=== PATIENT | female | born 1965 | race Caucasian/White ===

== ENCOUNTER 2016-11-21 09:39 | Emergency (ER) | payer MEDICARE ==
[2016-11-21 09:55] VITALS: TEMP 98.2; BMI 33.7
[2016-11-21] MEDS ORDERED: SODIUM CHLORIDE 0.9% 3 ML FLUSH FLUSH PRN (10:14)
--- NOTE | 2016-11-21 10:33 | EDPRACDOC ---
- General Information Chief Complaint: Thigh Pain Stated Complaint: LT HIP PAIN Time Seen by Provider: 11/21/16 09:54 Information Source: Patient Mode Of Arrival: Car Home Medications: Home Medications Buspirone HCl [Buspar] 10 mg PO TID 09/20/12 Gabapentin 800 mg PO QID 09/20/12 Cefdinir 300 mg PO .BID X 10D 11/21/16 Cyclobenzaprine HCl [Flexeril] 10 mg PO Q8H #10 tab 11/21/16 Estradiol [Estrace] 1 mg PO DAILY 11/21/16 Fluticasone Propionate [Flonase] 2 spray JEWELS DAILY 11/21/16 Hydrochlorothiazide [Hydrodiuril] 12.5 mg PO QAM 11/21/16 Hydrocodone Bit/Acetaminophen [Hydrocodon-Acetaminophen 5-325] 1 tab PO Q6H PRN #10 tab 11/21/16 Meloxicam [Mobic] 7.5 mg PO BID 11/21/16 Trazodone HCl 300 mg PO HS 11/21/16 Allergies/Adverse Reactions: Allergies Allergy/AdvReac Type Severity Reaction Status Date / Time No Known Allergies Allergy Verified 09/20/12 09:16 - History of Present Illness Onset: this morning HPI: Patient reports left groin pain started on Tuesday - denies known injury, no lifting/bending/twisting. Reports called PCP and could not be seen, told to go to - was seen at had xray and told had arthritis. Patient states she does not think it is only arthritis. States she has increased pain with weight bearing, no urinary symptoms, no fever, chills, nausea/vomiting. Denies numbness /tinging, normal distal exam. No swelling/redness or warmth noted. No back pain. Severity: Reports: Mild Able to Bear Weight: Limited Pain In: Reports: Thigh ED Past Medical History - History Reviewed Yes Nurses notes reviewed and agree except as marked - Patient Medical History Cardiac History: Reports: Hypercholesterolemia Surgical History: Reports: No Significant History - Social Medical History Smoking Status: Heavy tobacco smoker (5 or more cigarettes/day or daily pipe/ cigar) ETOH: None Substance Abuse: None Lives In: Home EDM Review of Systems - Review of Systems ROS Negative Except as Marked: Yes All systems reviewed and were negative except as marked Constitutional: No Symptoms Reported Eyes: No Symptoms Reported Ears: No Symptoms Reported Throat: No Symptoms Reported Nose: No Symptoms Reported Gastrointestinal: No Symptoms Reported Genitourinary: No Symptoms Reported Neurological: No Symptoms Reported Musculoskeletal: Other (Left groin pain) Integumentary: No Symptoms Reported - Physical Exam Constitutional: Alert (Awake), No apparent distress Oriented to: Time, Person, Place Last recorded Vital Signs: Last Vital Signs Temp 98.2 F 11/21/16 09:50 Pulse 90 11/21/16 09:50 Resp 18 11/21/16 09:50 BP 160/70 11/21/16 09:50 Pulse Ox 93 11/21/16 09:50 Oxygen Pulse Oxygen Saturation 93 O2 Device Room Air Oxygen Flow Rate Fraction of Inspired Oxygen ( FIO2) - HEENT Head: Normal ( normocephalic) Eye Exam: Normal (PERRL, EOMI, Sclera white) Neck: Normal (FROM, trachea at midline) - Respiratory/Cardiovascular Respiratory: Normal - CTA (BBS clear to auscultation without adventitious sounds ) Cardiovascular: Normal (RRR without murmur, gallop or rub) - GI Auscultation: Normal (NABS) Tenderness: Non tender - Musculoskeletal Back: Normal (Non-Tender) Extremities: Other (Left groin pain - minimal on palpation, worse with weight bearing, no redness/swelling/warmth) - Integumentary Skin: Normal, Warm, Dry Lymphatics: Normal (no adenopathy) - Neurologic Memory Impaired: Normal Motor Function: Normal (Normal tone, Pulses 2+ No cyanosis or edema, FROM) Mood Description: Normal - Re-evaluation Re-evaluation 1 Re-evaluation Time: 12:[address] scan and lab work with patient - negative for acute findings, need to followup with PCP and Ortho if pain persists. Rest, elevate, warm compresses , return as needed. - Results 11/21/16 10:23 11/21/16 10:23 Decision Time to Discharge: 12:34 - Departure Disposition: Home Condition: Stable Final Diagnosis: Groin pain Qualifiers: Laterality: left Qualified Code(s): R10.32 - Left lower quadrant pain Instructions: Non-pharmacological Pain Management Therapies for Adults (GEN), Abdominal Pain (ED) Education/Counseling Given To: Patient Education/Counseling Given Regarding: Diagnosis, Treatment, Prognosis, Follow Up Referrals: Paulina Trevino PA [Primary Care Provider] - 1-2 days Gregorio Barreto MD [Staff Physician] - One Week Prescriptions: Cyclobenzaprine HCl [Flexeril] 10 mg PO Q8H #10 tab Hydrocodone Bit/Acetaminophen [Hydrocodon-Acetaminophen 5-325] 1 tab PO Q6H PRN #10 tab PRN Reason: Pain Additional Instructions: Please followup with PCP in 1-2days. Return to ED if symptoms worsen/change or concerns arise. Rest, warm compresses at home. Consider followup with Ortho if pain persists.
[2016-11-21 10:46] LABS: AUTOMATED EOSINOPHIL 2.5 % (0-5); AUTOMATED LYMPH 21.4 % (17-44); AUTOMATED MONOCYTE 6.9 % (3-10); AUTOMATED NEUTROPHIL 68.2 % (45-76); MPV 7.9 fL (7.4-10.4)
[2016-11-21 10:54] LABS: BLOOD UREA NITROGEN 7 MG/DL (7-17); CALCIUM 9.6 MG/DL (8.4-10.2); CALCULATED OSMOLALITY 269 MOs/Kg (270-290); CHLORIDE 105 mEq/L (98-107); GLUCOSE 129 MG/DL (70-99); SODIUM LEVEL 140 mEq/L (137-146); TOTAL PROTEIN 8.4 G/DL (6.3-8.2)
[2016-11-21 10:54] LABS: RBC/URINE 0-2 (0-5); WBC/URINE 0-2 (0-5)
[2016-11-21] MEDS ORDERED: Pharmacy Review for Metformin - IV Contrast Given SCH (11:00)
[2016-11-21 11:46] LABS: LEUKOCYTES/URINE NEG (NEGATIVE); NITRITE/URINE NEG (NEGATIVE); URINE OCCULT BLOOD NEG (NEG/TRACE)
--- NOTE | 2016-11-21 12:20 | DIRPT ---
CLINICAL DATA: Left lower quadrant and left groin pain beginning this morning. EXAM: CT ABDOMEN AND PELVIS WITH CONTRAST TECHNIQUE: Multidetector CT imaging of the abdomen and pelvis was performed using the standard protocol following bolus administration of intravenous contrast. CONTRAST: 100 mL Isovue 370 COMPARISON: 03/27/2008 FINDINGS: Lower chest: No acute findings. Hepatobiliary: Hepatomegaly and mild diffuse hepatic steatosis demonstrated. No liver masses identified. Gallbladder is unremarkable. Pancreas: No mass, inflammatory changes, or other significant abnormality. Spleen: Within normal limits in size and appearance. Adrenals/Urinary Tract: No masses identified. Tiny sub-cm right lower pole renal cyst noted. No evidence of hydronephrosis. Stomach/Bowel: No evidence of obstruction, inflammatory process, or abnormal fluid collections. Normal appendix visualized. Vascular/Lymphatic: No pathologically enlarged lymph nodes. No evidence of abdominal aortic aneurysm. Reproductive: Prior hysterectomy noted. Adnexal regions are unremarkable in appearance. Other: No evidence of ventral abdominal wall or inguinal hernia. No evidence inguinal mass or lymphadenopathy. Musculoskeletal: No suspicious bone lesions identified. 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 IMPRESSION: No acute findings within the abdomen or pelvis. Hepatomegaly and mild hepatic steatosis. Electronically Signed By: Carlos Galan M.D. On: 11/21/2016 12:17
[2016-11-21] MEDS ORDERED: HYDROCODONE 5 MG/ACETAMIN 325 MG TAB PO ONE (12:32)
[2016-11-21 12:49] VITALS: BP 131/66; PULSE 85
[2016-11-21] MEDS ORDERED: SODIUM CHLORIDE 0.9% 3 ML FLUSH FLUSH SCH (18:00)
== END 2016-11-21 12:50 | disposition home or self-care (01) ==
LOC: ED 09:39
DX: R10.32 Left lower quadrant pain (principal)
CPT/HCPCS: 36415; 74177; 80053; 81001; 85025; 99283; A9270; A9698; J3490

== ENCOUNTER 2016-12-01 17:53 | Emergency (ER) | payer MEDICARE ==
[2016-12-01 19:42] VITALS: BP 124/74; PULSE 110; TEMP 98.7
[2016-12-01] MEDS ORDERED: HYDROmorphone 1 MG INJECTION IM ONE (19:43)
[2016-12-01 19:44] VITALS: BMI 33.5
--- NOTE | 2016-12-01 19:44 | EDPRACDOC ---
ED Hip Problem HPI - General Information Chief Complaint: Hip Pain Stated Complaint: HIP PAIN Time Seen by Provider: 12/01/16 19:37 Information Source: Patient Mode of Arrival: Car Home Medications: Home Medications Buspirone HCl [Buspar] 10 mg PO TID 09/20/12 Gabapentin 800 mg PO QID 09/20/12 Cefdinir 300 mg PO .BID X 10D 11/21/16 Cyclobenzaprine HCl [Flexeril] 10 mg PO Q8H #10 tab 11/21/16 Estradiol [Estrace] 1 mg PO DAILY 11/21/16 Fluticasone Propionate [Flonase] 2 spray JEWELS DAILY 11/21/16 Hydrochlorothiazide [Hydrodiuril] 12.5 mg PO QAM 11/21/16 Hydrocodone Bit/Acetaminophen [Hydrocodon-Acetaminophen 5-325] 1 tab PO Q6H PRN #10 tab 11/21/16 Meloxicam [Mobic] 7.5 mg PO BID 11/21/16 Trazodone HCl 300 mg PO HS 11/21/16 Oxycodone HCl/Acetaminophen [Percocet 10-325 mg Tablet] 1 - 2 tab PO Q6H PRN # 30 tab 12/01/16 Allergies/Adverse Reactions: Allergies Allergy/AdvReac Type Severity Reaction Status Date / Time No Known Allergies Allergy Verified 12/01/16 19:39 - History of Present Illness Onset: today HPI: PT PRESENTS TODAY REQUESTING PAIN MANAGEMENT. PT WAS RECENTLY DX WITH STRESS FX TO HER LEFT FEMUR. WAS SEEN BY ORTHO AND GIVEN TRAMADOL. STATES THIS IS NOT HELPING. PT STATES SHE IS UNABLE TO AMBULATE, EVEN TO THE BATHROOM Hip Problem Location: Reports: Left Mechanism: Reports: No Trauma Relevant History: Reports: Other Able to Bear Weight: No Pain Severity: Severe Associated Signs & Symptoms: Reports: None ED Past Medical History - History Reviewed Yes Nurses notes reviewed and agree except as marked - Patient Medical History Cardiac History: Reports: Hypercholesterolemia Musculoskeletal History: Reports: Arthritis (bilateral hips) Psychological History: Reports: Depression, Anxiety Surgical History: Reports: Hysterectomy, Tonsillectomy/Adnoidectomy - Social Medical History Smoking Status: Heavy tobacco smoker (5 or more cigarettes/day or daily pipe/ cigar) EDM Review of Systems - Review of Systems ROS Negative Except as Marked: Yes All systems reviewed and were negative except as marked Constitutional: No Symptoms Reported Respiratory: No Symptoms Reported Cardiovascular: No Symptoms Reported Gastrointestinal: No Symptoms Reported Genitourinary: No Symptoms Reported Neurological: No Symptoms Reported Musculoskeletal: Hip Integumentary: No Symptoms Reported - Physical Exam Constitutional: Alert, Distress Oriented to: Time, Person, Place Last recorded Vital Signs: Last Vital Signs Temp 98.7 F 12/01/16 19:42 Pulse 110 12/01/16 19:42 Resp 20 12/01/16 19:42 BP 124/74 12/01/16 19:42 Pulse Ox 95 12/01/16 19:42 Oxygen Pulse Oxygen Saturation 95 O2 Device Oxygen Flow Rate Fraction of Inspired Oxygen ( FIO2) - HEENT Head: Normal Eye Exam: Normal Neck: Normal, Denies Pain, Midline - Respiratory/Cardiovascular Respiratory: Normal - CTA Cardiovascular: Normal - GI Palpation: Normal Tenderness: Non tender - Musculoskeletal Back: Normal Extremities: Other (PT REFUSES PHYSICAL EXAM, SHE IS IN TOO MUCH PAIN) - Integumentary Skin: Normal Lymphatics: Normal - Neurologic Cerebellar: Normal Mood Description: Normal Thought: Coherent Perception: Normal - Additional Information RECORDS REVIEWED; Decision Time to Discharge: 19:45 - Departure Disposition: Home Condition: Stable Final Diagnosis: Hip fracture Qualifiers: Encounter type: subsequent encounter Fracture type: closed Laterality: left Fracture healing: with routine healing Qualified Code(s): S72.002D - Fracture of unspecified part of neck of left femur, subsequent encounter for closed fracture with routine healing Instructions: Hip Injury Education/Counseling Given To: Patient Education/Counseling Given Regarding: Diagnosis, Treatment, Follow Up Referrals: None,No Provider [Primary Care Provider] - One Week Curtis Oquendo DO [Staff Physician] - One Week Prescriptions: Oxycodone HCl/Acetaminophen [Percocet 10-325 mg Tablet] 1 - 2 tab PO Q6H PRN # 30 tab PRN Reason: Pain Additional Instructions: CONTINUE FOLLOW UP WITH ORTHO.
== END 2016-12-01 19:55 | disposition home or self-care (01) ==
LOC: ED 17:53 → EDMC 19:55
DX: S72.002D Fracture of unspecified part of neck of left femur, subsequent encounter for closed fracture with routine healing (principal); X58.XXXA Exposure to other specified factors, initial encounter; Y93.9 Activity, unspecified
CPT/HCPCS: 96372; 99282; J1170

== ENCOUNTER 2016-12-02 20:12 | Observation (INO) | payer MEDICARE ==
--- NOTE | 2016-12-02 20:19 | EDPRACDOC ---
ED Hip Problem HPI - General Information Stated Complaint: LEFT LEG/HIP PAIN Time Seen by Provider: 12/02/16 20:16 Information Source: Patient Mode of Arrival: Ambulance Home Medications: Home Medications Buspirone HCl [Buspar] 10 mg PO TID 09/20/12 Gabapentin 800 mg PO QID 09/20/12 Cyclobenzaprine HCl [Flexeril] 10 mg PO Q8H #10 tab 11/21/16 Estradiol [Estrace] 1 mg PO DAILY 11/21/16 Fluticasone Propionate [Flonase] 2 spray JEWELS DAILY 11/21/16 Hydrochlorothiazide [Hydrodiuril] 12.5 mg PO QAM 11/21/16 Hydrocodone Bit/Acetaminophen [Hydrocodon-Acetaminophen 5-325] 1 tab PO Q6H PRN #10 tab 11/21/16 Meloxicam [Mobic] 7.5 mg PO BID 11/21/16 Trazodone HCl 300 mg PO HS 11/21/16 Oxycodone HCl/Acetaminophen [Percocet 10-325 mg Tablet] 1 - 2 tab PO Q6H PRN # 30 tab 12/01/16 Allergies/Adverse Reactions: Allergies Allergy/AdvReac Type Severity Reaction Status Date / Time No Known Allergies Allergy Verified 12/01/16 19:39 - History of Present Illness Onset: 2 weeks ago HPI: 11/26 DIAGNOSED WITH LEFT FEMORAL NECK STRESS FRACTURE. SEEN BY ORTHO (DR BATISTA ), PLACED ON TRAMADOL. UNABLE TO AMBULATE DUE TO PAIN. PAIN STARTED TUESDAY. TO TOE TOUCH INITIALLY, BUT AFTER MRI SAID NO WEIGHT BEARING. PT HAS NO UPPER BODY STRENGTH. PT LIVES WITH BOYFRIEND. UNABLE TO TRANSFER. - Treatment Prior to ED Arrival Reported Medications/Treatment HOPPER FILLER IV No ED Past Medical History - Patient Medical History Cardiac History: Reports: Hypercholesterolemia Musculoskeletal History: Reports: Arthritis (bilateral hips) Psychological History: Reports: Anxiety. Denies: Depression Surgical History: Reports: Hysterectomy, Tonsillectomy/Adnoidectomy - Social Medical History Smoking Status: Heavy tobacco smoker (5 or more cigarettes/day or daily pipe/ cigar) EDM Review of Systems - Review of Systems ROS Negative Except as Marked: Yes All systems reviewed and were negative except as marked Constitutional: No Symptoms Reported Ears: No Symptoms Reported Respiratory: No Symptoms Reported Cardiovascular: No Symptoms Reported - Physical Exam Constitutional: Alert (Awake), No apparent distress Oriented to: Time, Person, Place Last recorded Vital Signs: Last Vital Signs Temp 98.9 F 12/02/16 20:14 Pulse 108 12/02/16 20:14 Resp 20 12/02/16 20:14 BP 147/75 12/02/16 20:14 Pulse Ox 93 12/02/16 20:14 Oxygen Pulse Oxygen Saturation 93 O2 Device Room Air Oxygen Flow Rate Fraction of Inspired Oxygen ( FIO2) - HEENT Head: Normal ( normocephalic) Eye Exam: Normal (PERRL, EOMI, Sclera white) Oropharynx: Normal (Pharynx:Moist without exudate,Gums-no swelling) Nose: No Symptoms Reported (septum midline) Neck: Normal (FROM, trachea at midline) - Respiratory/Cardiovascular Respiratory: Normal - CTA (BBS clear to auscultation without adventitious sounds ) Cardiovascular: Normal (RRR without murmur, gallop or rub) - GI Auscultation: Normal (NABS) Palpation: Normal (Soft,No rebound or guarding, non distended) Tenderness: Non tender Cintron's Sign: Negative - Musculoskeletal Back: Normal (Non-Tender) Extremities: Edema (3+ PITTING EDEMA B/L), Other (LEFT ANTERIOR HIP TTP.) - Integumentary Skin: Normal, Warm, Dry Lymphatics: Normal (no adenopathy) - Neurologic Memory Impaired: Normal Motor Function: Normal (Normal tone, Pulses 2+ No cyanosis or edema, FROM) Cranial Nerve: Normal (CN II-X11 intact sensation, strength 5/5) Cerebellar: Normal Mood Description: Normal Perception: Normal - Results 12/02/16 20:25 12/02/16 20:25 - EKG EKG #1 EKG Time: 20:36 -: Yes EKG interpreted by me Rate: bpm: 110 Pound: Normal Rhythm: ST Block: None Hypertrophy: None ST: Normal Comments: NORMAL EKG - Departure Yes I personally saw and evaluated the patient. Disposition: Admit IP To This Hospital Condition: Stable Final Diagnosis: Hip fracture Qualifiers: Encounter type: subsequent encounter Fracture type: closed Laterality: left Fracture healing: with routine healing Qualified Code(s): S72.002D - Fracture of unspecified part of neck of left femur, subsequent encounter for closed fracture with routine healing Prescriptions: No Action Buspirone HCl [Buspar] 10 mg PO TID Gabapentin 800 mg PO QID Fluticasone Propionate [Flonase] 2 spray JEWELS DAILY Trazodone HCl 300 mg PO HS Meloxicam [Mobic] 7.5 mg PO BID Hydrochlorothiazide [Hydrodiuril] 12.5 mg PO QAM Estradiol [Estrace] 1 mg PO DAILY Cyclobenzaprine HCl [Flexeril] 10 mg PO Q8H #10 tab Hydrocodone Bit/Acetaminophen [Hydrocodon-Acetaminophen 5-325] 1 tab PO Q6H PRN #10 tab PRN Reason: Pain Oxycodone HCl/Acetaminophen [Percocet 10-325 mg Tablet] 1 - 2 tab PO Q6H PRN #30 tab PRN Reason: Pain Decision to Admit Time: 22:18 Decision to admit date: 12/02/16 Decision to admit: from ED - Physician Consulted Hospitalist Time Called: 22:18 Provider Called: Evin Zendejas Time Program Support Clerk Returned Call: 22:18
--- NOTE | 2016-12-02 20:50 | DIRPT ---
CLINICAL DATA: Medical clearance examination for patient with a left femoral neck fracture. EXAM: PORTABLE CHEST 1 VIEW COMPARISON: None. FINDINGS: There is cardiomegaly without edema. Mild left basilar atelectasis arch that mild basilar atelectasis is noted. No pneumothorax or pleural effusion. IMPRESSION: Cardiomegaly without acute disease. Electronically Signed By: Antoine Romero M.D. On: 12/02/2016 20:47
[2016-12-02 21:14] LABS: BLOOD UREA NITROGEN 8 MG/DL (7-17); CALCIUM 9.8 MG/DL (8.4-10.2); CALCULATED OSMOLALITY 257 MOs/Kg (270-290); CHLORIDE 97 mEq/L (98-107); GLUCOSE 122 MG/DL (70-99); SODIUM LEVEL 134 mEq/L (137-146); TOTAL PROTEIN 8.7 G/DL (6.3-8.2)
[2016-12-02 21:36] LABS: AUTOMATED BASOPHIL 0.5 % (0-2); AUTOMATED EOSINOPHIL 1.6 % (0-5); AUTOMATED LYMPH 14.4 % (17-44); AUTOMATED MONOCYTE 6.2 % (3-10); AUTOMATED NEUTROPHIL 77.3 % (45-76); MPV 8.5 fL (7.4-10.4)
[2016-12-02 21:55] LABS: LEUKOCYTES/URINE NEG (NEGATIVE); NITRITE/URINE NEG (NEGATIVE); URINE OCCULT BLOOD NEG (NEG/TRACE); WBC/URINE 0-2 (0-5)
[2016-12-02] MEDS ORDERED: CHLORHEXIDINE (HIBICLENS) 4 OZ BOTTLE TOP ONE (22:35)
[2016-12-02] MEDS ORDERED: Non-Formulary Medication ITEM (Oxycodone Hcl/Acetaminophen [Percocet 10-325 Mg Tablet] 1 PO PRN (22:38)
--- NOTE | 2016-12-02 22:40 | HISTPHYS ---
- Chief Complaint I can't walk due to severe pain in mild left hip. - History of Present Illness Patient is a very pleasant 51-year-old what single female who lives with her boyfriend nearby and somehow developed a spontaneous left femoral neck fracture that was not readily apparent when she had gone for evaluation. She was referred from the emergency room on the to Dr. Oquendo and had a MRI of the left hip which showed a stress fracture of the left femoral neck which was treated nonsurgically. I spoke directly with her orthopedist and he recommended nonweightbearing status re-emphasized the nonsurgical approach to this injury. In addition to nonambulatory status she also complains fiercely of peripheral edema that is gotten worse over the past 2 days. She mentions taking furosemide and does not like it, as it makes her urinate frequently and has difficulty getting to the toilet with her hip fracture. - Medical History Cardiac History: Reports: Hypertension, Hypercholesterolemia ( Hypertriglyceridemia associated with fatty liver disease) Respiratory History: Reports: No Significant History GI/ History: Reports: No Significant History Musculoskeletal History: Reports: Arthritis (bilateral hips) Systemic History: Reports: Cancer (radiation therapy treatments 2001 p cavernous sinus meningioma removal) Neurological History: Reports: Other Psychological History: Reports: Anxiety. Denies: Depression - Surgical History Reports: Hysterectomy, Tonsillectomy/Adnoidectomy - Medictions/Allergies Allergies No Known Allergies Allergy (Verified 12/01/16 19:39) Current Medication List: Reviewed Home Medications Buspirone HCl [Buspar] 10 mg PO TID 09/20/12 Gabapentin 800 mg PO QID 09/20/12 Cyclobenzaprine HCl [Flexeril] 10 mg PO Q8H #10 tab 11/21/16 Estradiol [Estrace] 1 mg PO DAILY 11/21/16 Fluticasone Propionate [Flonase] 2 spray JEWELS DAILY 11/21/16 Hydrochlorothiazide [Hydrodiuril] 12.5 mg PO QAM 11/21/16 Hydrocodone Bit/Acetaminophen [Hydrocodon-Acetaminophen 5-325] 1 tab PO Q6H PRN #10 tab 11/21/16 Meloxicam [Mobic] 7.5 mg PO BID 11/21/16 Trazodone HCl 300 mg PO HS 11/21/16 Oxycodone HCl/Acetaminophen [Percocet 10-325 mg Tablet] 1 - 2 tab PO Q6H PRN # 30 tab 12/01/16 - Family History Reports: Hypertension (Mom), Diabetes (Father had diabetes), Cardiac Disorders ( Coronary artery disease in both parents) - Social History Travel Outside of [place] in the Last 3 Months?: No Lives: with Significant Other (Boyfriend) Smoking Status: Heavy tobacco smoker (5 or more cigarettes/day or daily pipe/ cigar) (Smokes 1.5 packs a day) Social History: Denies: Alcohol Use, Substance Use Disorder - Review of Systems Constitutional: Weakness (Not able to ambulate due to left hip pain) Eyes: Other (Right 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) Ears: No Symptoms Reported (No ear pain or discharge) Nose: No Symptoms Reported (No nasal discharge/congestion or bleeding) Mouth: No Symptoms Reported (No oropharyngeal lesions or erythema) Throat/Neck: No Symptoms Reported (No throat pain or swelling.No oropharyngeal lesions or erythema.) Respiratory: No Symptoms Reported (No cough, wheezing, or shortness of breath.) Cardiovascular: Edema Gastrointestinal: No Symptoms Reported (No abdominal pain, nausea, vomiting, diarrhea, constipation, or bloody stool.) Genitourinary: Frequency (Associated with Lasix), Urgency to urinate ( Associated with Lasix) Neurological: Other (History of 3 surgeries on her meningioma which was apparently involving her right cavernous sinus. She also had to have a neurostimulator for the chronic pain that she suffered in the head postoperatively. Pain is improved and neuro stimulator is removed. High dose gabapentin she takes for the neuropathy causing right head pain.) Musculoskeletal:: Other (Severe left hip pain associated with any activity) Integumentary: No Symptoms Reported (no rashes or lesions) Allergic/Immunologic: No Symptoms Reported (no rashes or lesions) Hematologic: No Symptoms Reported (No chronic anemia, bleeding, or easy bruising.), Other (Lymphatics- no lymph node swelling or pain.) Endocrine: Diabetes (Diet controlled diabetes diagnosed 6 weeks ago) Psychiatric: Depression - Physical Exam Vital Signs: Initial Vitals Temperature 98.9 F 12/02/16 20:14 Pulse Rate 108 12/02/16 20:14 Respiratory Rate 20 12/02/16 20:14 Blood Pressure 147/75 12/02/16 20:14 Pulse Oxygen Saturation 93 01/26/17 20:14 Constitutional: Alert (Awake, Fully oriented. Normal and appropriate affect. Obesity noted), Distress (Mild distress from left groin pain) Oriented to: Time, Person, Place - HEENT Head: Normal (normocephalic, atraumatic.), Other (No cervical lymphadenopathy. No supraclavicular lymphadenopathy. Neck: No palpable mass, supple , trachea midline.) Eye: Normal (pupils equal, reactive to light, and round; EOMI, Sclera white) Oropharynx: Normal (Pharynx: Moist without exudate,Gums-no swelling, No oropharyngeal lesions or erythema, Mucous membranes are dry.) ENT EAC: Normal (No oropharyngeal lesions or erythema. Mucous membranes are dry. ) TMJ: Normal Nose: No Symptoms Reported (septum midline, Nares patent, without discharge or bleeding.) Respiratory: Normal - CTA (Clear to auscultation bilaterally. No wheezing, rales , rhonchi. Chest wall movements are symmetric. No use of accessory muscles to breathe.) Cardiovascular: Normal (RRR , Normal S1, S2. No murmurs, rubs, or gallops. PMI non-displaced. Carotids: no carotid bruits. No bradycardia or tachycardia. DP pulses 2+ bilaterally.) - GI Auscultation: Normal (normal active sounds) Palpation: Normal (Soft,non distended,nontender. No hepatosplenomegaly.) Tenderness: Non tender (No rebound or guarding) Cintron's Sign: Negative - Musculoskeletal Back: Normal (Non-Tender) Extremities: Edema (3+ peripheral edema), Other (Pain moving left hip). negative: Clubbing, Cyanosis Spine: normal inspection, limited range of motion - Integumentary Skin: Normal (Clean, dry, and intact. No rashes. No lesions.) Lymphatics: Normal (No cervical lymphadenopathy. No supraclavicular lymphadenopathy.) - Neurologic Memory Impaired: Normal Motor Function: Abnormal Cranial Nerve: Normal (CN II-XII intact sensation, strength 5/5) Cerebellar: Normal (Babinski: toes downgoing bilaterally. Intact Finger to nose. Sensory grossly intact to light touch. Intact rapid alternating movements bilaterally. No pronator drift.) Mood Description: Normal (Fully oriented. Normal and appropriate affect.) Perception: Normal (Normal and appropriate affect.) - Focused CV Perfusion Exam Vital Signs: Last Vital Signs Temp 98.9 F 12/02/16 22:20 Pulse 104 12/02/16 22:20 Resp 20 12/02/16 22:20 BP 119/57 L 12/02/16 22:20 Pulse Ox 91 12/02/16 22:20 - Lab Results 12/02/16 20:25 12/02/16 20:25 Laboratory Results - last 24 hr 12/02/16 12/02/16 12/02/16 20:25 20:25 20:25 WBC 15.1 H RBC 4.10 L Hgb 14.1 Hct 41.0 MCV 100 H MCH 34.4 H MCHC 34.5 RDW 15.0 H Plt Count 216 MPV 8.5 Neut % (Auto) 77.3 H Lymph % (Auto) 14.4 L [place] % (Auto) 6.2 Eos % (Auto) 1.6 Baso % (Auto) 0.5 Absolute Neuts (auto) 11.63 H Absolute Lymphs (auto) 2.11 Sodium 134 L Potassium 4.0 Chloride 97 L Carbon Dioxide 24 Anion Gap 17 H BUN 8 Creatinine 0.50 L Estimated GFR (MDRD) > 60 Glucose 122 H Calculated Osmolality 257 L Calcium 9.8 Total Bilirubin 1.2 AST 118 H ALT 47 Alkaline Phosphatase 111 Txp-N-Jlfsabigswd Pept 195 Total Protein 8.7 H Albumin 4.5 Urine Color Urine Clarity Urine pH Ur Specific [place] Urine Protein Urine Glucose (UA) Urine Ketones Urine Occult Blood Urine Nitrite Urine Bilirubin Urine Urobilinogen Ur Leukocyte Esterase Urine WBC Ur Epithelial Cells Urine Mucus 12/02/16 21:25 WBC RBC Hgb Hct MCV MCH MCHC RDW Plt Count MPV Neut % (Auto) Lymph % (Auto) [place] % (Auto) Eos % (Auto) Baso % (Auto) Absolute Neuts (auto) Absolute Lymphs (auto) Sodium Potassium Chloride Carbon Dioxide Anion Gap BUN Creatinine Estimated GFR (MDRD) Glucose Calculated Osmolality Calcium Total Bilirubin AST ALT Alkaline Phosphatase Cic-G-Vmsxmryolpo Pept Total Protein Albumin Urine Color Yellow Urine Clarity Clear Urine pH 6.0 Ur Specific [place] 1.025 Urine Protein 1+ H Urine Glucose (UA) Neg Urine Ketones Neg Urine Occult Blood Neg Urine Nitrite Neg Urine Bilirubin Neg Urine Urobilinogen 2 H Ur Leukocyte Esterase Neg Urine WBC 0-2 Ur Epithelial Cells Occ Urine Mucus Occ - Diagnostic Findings CT of the abdomen pelvis done 11/21/2016 shows the following: FINDINGS: Lower chest: No acute findings. Hepatobiliary: Hepatomegaly and mild diffuse hepatic steatosis demonstrated. No liver masses identified. Gallbladder is unremarkable. Pancreas: No mass, inflammatory changes, or other significant abnormality. Spleen: Within normal limits in size and appearance. Adrenals/Urinary Tract: No masses identified. Tiny sub-cm right lower pole renal cyst noted. No evidence of hydronephrosis. Stomach/Bowel: No evidence of obstruction, inflammatory process, or abnormal fluid collections. Normal appendix visualized. Vascular/Lymphatic: No pathologically enlarged lymph nodes. No evidence of abdominal aortic aneurysm. Reproductive: Prior hysterectomy noted. Adnexal regions are unremarkable in appearance. Other: No evidence of ventral abdominal wall or inguinal hernia. No evidence inguinal mass or lymphadenopathy. Musculoskeletal: No suspicious bone lesions identified. 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 IMPRESSION: No acute findings within the abdomen or pelvis. Hepatomegaly and mild hepatic steatosis. - Assessment (1) Stress fracture of neck of left femur M84.352A - STRESS FRACTURE, LEFT FEMUR, INITIAL ENCOUNTER FOR FRACTURE Acute Present on Admission: Yes Stress fracture of the left femoral neck diagnosed 11/26/2016 on MRI examination which orthopedics has informed me is non operative. Unfortunately she is unable to ambulate due to the severe pain and will need fdc placement. Physical therapy will not be able to allow her to bear weight on that left hip. (2) Obesity (BMI 35.0-39.9 without comorbidity) E66.9 - OBESITY, UNSPECIFIED Chronic Present on Admission: Yes Weight loss is imperative with her diabetes hip pain and peripheral edema. (3) Chronic head pain R51 - HEADACHE; G89.29 - OTHER CHRONIC PAIN Acute Present on Admission: Yes States the Neurontin helps and if she misses it for more than an hour the pain returned full force in the right side of her head. So we will give her the Neurontin. (4) Rhinitis J31.0 - CHRONIC RHINITIS Chronic Present on Admission: Yes Qualifiers: Rhinitis type: allergic Allergic rhinitis trigger: A Allergic rhinitis seasonality: unspecified seasonality Flonase ordered. (5) Peripheral edema R60.9 - EDEMA, UNSPECIFIED Chronic Present on Admission: Yes Subacute edema states it is worse over the past 2 days but no real history of orthopnea PND. Check a BNP and if it is elevated will check an echocardiogram. If will put her on Lasix will have to stick a Ward in her and I really do not want to do that. I will just fluid restrict her. (6) Tobacco abuse Z72.0 - TOBACCO USE Acute Spent 10 minutes talking with her about smoking cessation his interested in Chantix as well as nicotine patch. (7) Diet-controlled diabetes mellitus E11.9 - TYPE 2 DIABETES MELLITUS WITHOUT COMPLICATIONS Chronic Present on Admission: Yes 1800 calorie ADA diet. Sliding scale insulin therapy. Case Care Discussed with: Patient, Nursing Staff Total Time: Time spent with this sweet lady 1 Hour 6 minutes plus additional 10 minutes discussing smoking cessation which I told her is associated with osteoporosis Critical Care: No Code: [id number])
[2016-12-02] MEDS ORDERED: MUPIROCIN 2% OINT 22 GM TUBE NAS SCH (23:00)
[2016-12-02] MEDS: OXYCODONE HCL 5 MG TABLET PO PRN (23:16)
[2016-12-03] MEDS: NS/KCl 20 mEq 1,000 ML IV SCH ×2 (01:14→16:57)
[2016-12-03] MEDS ORDERED: Vaccine Screening Complete SCH (02:00)
[2016-12-03] MEDS ORDERED: DEXTROSE 25 GM/50 ML PFS IV PRN (02:39)
[2016-12-03] MEDS ORDERED: GLUCAGON 1 MG VIAL SQ PRN (02:39)
[2016-12-03] MEDS ORDERED: GLUCOSE (ORAL GEL) 15 GM TUBE PO PRN (02:39)
[2016-12-03] MEDS ORDERED: TRAZODONE 100 MG TAB PO ONE (02:40)
[2016-12-03] MEDS ORDERED: ENOXAPARIN 40 MG/0.4 ML PFS SQ SCH (03:00)
[2016-12-03] MEDS: NICOTINE 21 MG PATCH TOP SCH (03:06)
[2016-12-03] MEDS: BUSPIRONE 10 MG TAB PO SCH ×3 (06:15→22:21)
[2016-12-03] MEDS: OXYCODONE HCL 5 MG TABLET PO PRN ×3 (06:15→18:40)
[2016-12-03] MEDS: REGULAR INSULIN 100 UNITS/ML - 3 ML VIAL SQ SCH ×2 (06:19→16:58)
[2016-12-03] MEDS: ENOXAPARIN 40 MG/0.4 ML PFS SQ SCH (08:10)
[2016-12-03] MEDS: GABAPENTIN 800 MG TAB PO SCH ×4 (08:11→22:21)
[2016-12-03] MEDS: MELOXICAM 7.5 MG TAB PO SCH ×2 (08:11→22:22)
[2016-12-03] MEDS: ESTRADIOL 1 MG TAB PO SCH (08:11)
[2016-12-03] MEDS: HYDROCHLOROTHIAZIDE 12.5 MG CAP PO SCH (08:11)
--- NOTE | 2016-12-03 11:56 | DIRPT ---
CLINICAL DATA: Left leg pain. Bilateral leg swelling. EXAM: BILATERAL LOWER EXTREMITY VENOUS DOPPLER ULTRASOUND TECHNIQUE: Hernandez-scale sonography with graded compression, as well as color Doppler and duplex ultrasound were performed to evaluate the lower extremity deep venous systems from the level of the common femoral vein and including the common femoral, femoral, profunda femoral, popliteal and calf veins including the posterior tibial, peroneal and gastrocnemius veins when visible. The superficial great saphenous vein was also interrogated. Spectral Doppler was utilized to evaluate flow at rest and with distal augmentation maneuvers in the common femoral, femoral and popliteal veins. COMPARISON: None. FINDINGS: RIGHT LOWER EXTREMITY Common Femoral Vein: No evidence of thrombus. Normal compressibility, respiratory phasicity and response to augmentation. Saphenofemoral Junction: No evidence of thrombus. Normal compressibility and flow on color Doppler imaging. Profunda Femoral Vein: No evidence of thrombus. Normal compressibility and flow on color Doppler imaging. Femoral Vein: No evidence of thrombus. Normal compressibility, respiratory phasicity and response to augmentation. Popliteal Vein: No evidence of thrombus. Normal compressibility, respiratory phasicity and response to augmentation. Calf Veins: No evidence of thrombus. Normal compressibility and flow on color Doppler imaging. Superficial Great Saphenous Vein: No evidence of thrombus. Normal compressibility and flow on color Doppler imaging. Other Findings: None. LEFT LOWER EXTREMITY Common Femoral Vein: No evidence of thrombus. Normal compressibility, respiratory phasicity and response to augmentation. Saphenofemoral Junction: No evidence of thrombus. Normal compressibility and flow on color Doppler imaging. Profunda Femoral Vein: No evidence of thrombus. Normal compressibility and flow on color Doppler imaging. Femoral Vein: No evidence of thrombus. Normal compressibility, respiratory phasicity and response to augmentation. Popliteal Vein: No evidence of thrombus. Normal compressibility, respiratory phasicity and response to augmentation. Calf Veins: No evidence of thrombus. Normal compressibility and flow on color Doppler imaging. Superficial Great Saphenous Vein: No evidence of thrombus. Normal compressibility and flow on color Doppler imaging. Other Findings: None. IMPRESSION: No evidence of deep venous thrombosis. Electronically Signed By: Antoine Bell On: 12/03/2016 11:54
[2016-12-03] MEDS ORDERED: DOCUSATE-SENNA CONCENTRATE TAB PO PRN (13:27)
[2016-12-03] MEDS ORDERED: FLEET 4.5 OZ ENEMA PR PRN (13:27)
--- NOTE | 2016-12-03 14:43 | PCM.ORTHCO ---
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 She was seen in the office 1 week ago after an initial evaluation for insidious onset of left hip pain and inability to bear weight. An MRI scan of her left hip did demonstrate an incomplete fracture on the compression side/inferior medial femoral neck of the left hip. Non operative treatment to the patient was recommended as well as weight-bearing restrictions on the left hip. Patient presented to the ER yesterday with complaints of increased pain and inability to maintain her weight -bearing restrictions. Patient feels that she is unable to care for herself at home. She continues to complain of significant muscle spasms within the left lower extremity. Chief Complaint: I can't walk due to severe pain in mild left hip. 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 Denies: Depression, Alcoholism, Substance Use Disorder Neurological History: Reports: No Significant History, Other Past Surgical History: Reports: No Significant History, Hysterectomy, Tonsillectomy/Adnoidectomy Allergies No Known Allergies Allergy (Verified 12/01/16 19:39) Home Medications Buspirone HCl [Buspar] 10 mg PO TID 09/20/12 Gabapentin 800 mg PO QID 09/20/12 Cyclobenzaprine HCl [Flexeril] 10 mg PO Q8H #10 tab 11/21/16 Estradiol [Estrace] 1 mg PO DAILY 11/21/16 Fluticasone Propionate [Flonase] 2 spray JEWELS DAILY 11/21/16 Hydrochlorothiazide [Hydrodiuril] 12.5 mg PO QAM 11/21/16 Hydrocodone Bit/Acetaminophen [Hydrocodon-Acetaminophen 5-325] 1 tab PO Q6H PRN #10 tab 11/21/16 Meloxicam [Mobic] 7.5 mg PO BID 11/21/16 Trazodone HCl 300 mg PO HS 11/21/16 Oxycodone HCl/Acetaminophen [Percocet 10-325 mg Tablet] 1 - 2 tab PO Q6H PRN # 30 tab 12/01/16 - Social History Travel Outside of [place] in the Last 3 Months?: No Lives: with Significant Other (Boyfriend) Smoking Status: Heavy tobacco smoker (5 or more cigarettes/day or daily pipe/ cigar) (Smokes 1.5 packs a day) Social History: Denies: Alcohol Use, Substance Use Disorder - Family History Reports: No Significant History, Hypertension (Mom), Diabetes (Father had diabetes), Cardiac Disorders (Coronary artery disease in both parents) - Review of Systems Yes All systems reviewed and were negative except as marked Musculoskeletal:: Other (Left hip pain, left groin pain, spasm) - Physical Exam Vital Signs: Initial Vitals Temperature 98.9 F 12/02/16 20:14 Pulse Rate 108 12/02/16 20:14 Respiratory Rate 20 12/02/16 20:14 Blood Pressure 147/75 12/02/16 20:14 Pulse Oxygen Saturation 93 12/02/16 20:14 Constitutional: No apparent distress, Alert Oriented to: Time, Person, Place - HEENT Head: Normal - Musculoskeletal Extremities: Other (Examination of the patient's left hip is normal to inspection. She is nontender to palpate laterally over the trochanter. No effusion. She does have reproducible pain within the left groin with any attempts at passive range of motion. She has pain reproducible in the left groin with logroll testing. Left knee is nontender to palpate. No effusion. She has full plantar flexion and dorsiflexion of the left ankle distally. Left lower extremity remains neurovascularly intact without motor deficit.) - Lab Results 12/02/16 20:25 12/02/16 20:25 - Assessment/Plan (1) Stress fracture of neck of left femur M84.352A - STRESS FRACTURE, LEFT FEMUR, INITIAL ENCOUNTER FOR FRACTURE Acute Present on Admission: Yes Case Care Discussed with: Patient, Consultants Plan: 1. Incomplete, infero medial femoral neck fracture left hip -recommend continuing with non operative treatment of her stress fracture. Continue weight-bearing restrictions. Maintain toe-touch weight-bearing on the left lower extremity while using a walker or wheelchair. -pain control. -recommend tense, SCDs and consider chemical DVT prophylaxis if patient remains immobile -recommend the patient keep her follow-up visit as scheduled as an outpatient and repeat x-rays at that time. -thank you for this consultation on Yamileth Wilson
--- NOTE | 2016-12-03 16:10 | GENMEDPROG ---
Subjective Note: Patient with no new complaints except for severe constipation. Notes Reviewed: Yes Events from last night noted and discussed with Clinical Staff Current Medication List: Reviewed Currently: Reports: Tobacco Use/Hx, Other (hip pain) DVT Prophylaxis: Yes - Physical Examination Vital Signs and I&O: Last Vital Signs Temp 99.5 F 12/03/16 15:01 Pulse 90 12/03/16 15:01 Resp 20 12/03/16 15:01 BP 122/61 12/03/16 15:01 Pulse Ox 93 12/03/16 15:01 Oxygen Pulse Oxygen Saturation 93 O2 Device Room Air Oxygen Flow Rate Fraction of Inspired Oxygen ( FIO2) Intake & Output 11/30/16 12/01/16 12/02/16 12/03/16 23:59 23:59 23:59 23:59 Intake Total 431 Balance 431 Patient's weight 75.296 kg 78.953 kg General: Alert, Oriented x3, No acute distress, Well appearing, Well nourished HEENT: Normal (Normocephalic, atraumatic;EOMI.Sclera white, Nares patent, without discharge or bleeding. No oropharyngeal lesions or erythema. Mucous membranes are dry.) Neck: Non-tender, Full range of motion, Normal Trachea alignment, Normal inspection (No cervical lymphadenopathy. No supraclavicular lymphadenopathy.), No Masses palpable, Supple Lymphatics: Normal (No cervical lymphadenopathy. No supraclavicular lymphadenopathy.) Respiratory: Normal - CTA (Clear to auscultation bilaterally. No wheezing, rales , rhonchi. Chest wall movements are symmetric. No use of accessory muscles to breathe.) Cardiovascular: Regular rate and rhythm (No bradycardia or tachycardia), Normal S1, No Gallops,Rubs/Murmurs, Normal S2, Good Pedal Pulses (DP pulses 2+ bilaterally) GI: Normal bowel sounds (normal active sounds), Soft (non-distended), Non tender , No hepatospenomegaly, No masses Extremities/Musculoskeletal: Normal pulses (DP pulses 2+ bilaterally) Skin: Warm,Dry and Intact, No rashes, No significant lesion Neurological: Strength at 5/5 X4 ext (Motor 5/5 throughout.), Normal tone, Cranial nerves 3-12 NL ( 2-12 grossly intact.) Psych/Mental Status: Appropriate, Normal Affect Lab/DI/Studies Reviewed: FINDINGS: RIGHT LOWER EXTREMITY Common Femoral Vein: No evidence of thrombus. Normal compressibility, respiratory phasicity and response to augmentation. Saphenofemoral Junction: No evidence of thrombus. Normal compressibility and flow on color Doppler imaging. Profunda Femoral Vein: No evidence of thrombus. Normal compressibility and flow on color Doppler imaging. Femoral Vein: No evidence of thrombus. Normal compressibility, respiratory phasicity and response to augmentation. Popliteal Vein: No evidence of thrombus. Normal compressibility, respiratory phasicity and response to augmentation. Calf Veins: No evidence of thrombus. Normal compressibility and flow on color Doppler imaging. Superficial Great Saphenous Vein: No evidence of thrombus. Normal compressibility and flow on color Doppler imaging. Other Findings: None. LEFT LOWER EXTREMITY Common Femoral Vein: No evidence of thrombus. Normal compressibility, respiratory phasicity and response to augmentation. Saphenofemoral Junction: No evidence of thrombus. Normal compressibility and flow on color Doppler imaging. Profunda Femoral Vein: No evidence of thrombus. Normal compressibility and flow on color Doppler imaging. Femoral Vein: No evidence of thrombus. Normal compressibility, respiratory phasicity and response to augmentation. Popliteal Vein: No evidence of thrombus. Normal compressibility, respiratory phasicity and response to augmentation. Calf Veins: No evidence of thrombus. Normal compressibility and flow on color Doppler imaging. Superficial Great Saphenous Vein: No evidence of thrombus. Normal compressibility and flow on color Doppler imaging. Other Findings: None. IMPRESSION: No evidence of deep venous thrombosis. Electronically Signed By: Antoine [place] On: 12/03/2016 11:54 - Assessment (1) Stress fracture of neck of left femur Acute M84.352A - STRESS FRACTURE, LEFT FEMUR, INITIAL ENCOUNTER FOR FRACTURE Comment/Plan: Stress fracture of the left femoral neck diagnosed 11/26/2016 non operative. Unfortunately she is unable to ambulate due to the severe pain and will need alf placement. Physical therapy will not be able to allow her to bear weight on that left hip. Continue present plan await placement (2) Obesity (BMI 35.0-39.9 without comorbidity) Chronic E66.9 - OBESITY, UNSPECIFIED Comment/Plan: Weight loss is imperative with her diabetes hip pain and peripheral edema. (3) Chronic head pain Acute R51 - HEADACHE; G89.29 - OTHER CHRONIC PAIN Comment/Plan: States the Neurontin helps and if she misses it for more than an hour the pain returned full force in the right side of her head. So we will give her the Neurontin. 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 (4) Rhinitis Chronic J31.0 - CHRONIC RHINITIS Qualifiers: Rhinitis type: allergic Allergic rhinitis trigger: A Allergic rhinitis seasonality: unspecified seasonality Comment/Plan: Flonase ordered. (5) Peripheral edema Chronic R60.9 - EDEMA, UNSPECIFIED Comment/Plan: I do not appreciate any significant amount of edema on examination today. Will continue to monitor and continue fluid restriction. (6) Tobacco abuse Acute Z72.0 - TOBACCO USE Comment/Plan: Spent 10 minutes talking with her about smoking cessation his interested in Chantix as well as nicotine patch. (7) Diet-controlled diabetes mellitus Chronic E11.9 - TYPE 2 DIABETES MELLITUS WITHOUT COMPLICATIONS Comment/Plan : 1800 calorie ADA diet. Sliding scale insulin therapy. - Plan Await placement at skilled facility. Orthopedics help appreciated. Disposition Plan: Skilled facility Case Care Discussed with: Patient, Nursing Staff Education/Counseling Given To: Patient Education/Counseling Given Regarding: Diagnosis, Treatment, Prognosis, Disposition Plan Total Time: 45 minutes Critical Care: No Couseling Time (>50% in counseling/coordination): No
[2016-12-03] MEDS: BISACODYL 5 MG TAB PO PRN (16:46)
[2016-12-03] MEDS: MAGNESIUM HYDROXIDE 30 ML BOTTLE PO PRN (16:46)
[2016-12-03] MEDS: HYDROCODONE 5 MG/ACETAMIN 325 MG TAB PO PRN ×2 (16:53→22:24)
[2016-12-03] MEDS ORDERED: TRAZODONE HCL 300 MG PO SCH (21:00)
[2016-12-03] MEDS ORDERED: TRAZODONE 100 MG TAB PO SCH (21:00)
[2016-12-03] MEDS: TRAZODONE 100 MG TAB PO SCH (22:50)
[2016-12-04] MEDS: NICOTINE 21 MG PATCH TOP SCH (03:04)
[2016-12-04] MEDS: OXYCODONE HCL 5 MG TABLET PO PRN ×3 (04:11→16:47)
[2016-12-04] MEDS: BUSPIRONE 10 MG TAB PO SCH ×3 (05:56→21:21)
[2016-12-04] MEDS: BISACODYL 5 MG TAB PO PRN (06:20)
[2016-12-04] MEDS: REGULAR INSULIN 100 UNITS/ML - 3 ML VIAL SQ SCH ×2 (06:46→18:06)
[2016-12-04 07:18] LABS: MPV 8.2 fL (7.4-10.4)
[2016-12-04 07:28] LABS: BLOOD UREA NITROGEN 13 MG/DL (7-17); CALCIUM 9.1 MG/DL (8.4-10.2); CALCULATED OSMOLALITY 270 MOs/Kg (270-290); CHLORIDE 104 mEq/L (98-107); GLUCOSE 120 MG/DL (70-99); SODIUM LEVEL 140 mEq/L (137-146)
[2016-12-04 07:53] LABS: SEG NEUTROPHIL 58 % (45-76)
[2016-12-04] MEDS ORDERED: PNEUMOCOCCAL 0.5 ML VIAL IM ONE (08:00)
[2016-12-04] MEDS ORDERED: FLU VACCINE (Afluria) 0.5 ML DOSE IM ONE (08:00)
[2016-12-04] MEDS: GABAPENTIN 800 MG TAB PO SCH ×4 (08:09→21:23)
[2016-12-04] MEDS: ESTRADIOL 1 MG TAB PO SCH (08:14)
[2016-12-04] MEDS: ENOXAPARIN 40 MG/0.4 ML PFS SQ SCH (08:14)
[2016-12-04] MEDS: HYDROCHLOROTHIAZIDE 12.5 MG CAP PO SCH (08:14)
[2016-12-04] MEDS: MELOXICAM 7.5 MG TAB PO SCH ×2 (08:15→21:23)
--- NOTE | 2016-12-04 08:20 | PCM.ORTHBL ---
- Subjective Daily Assessment - Patient: Reports: No new complaints, Awake Alert Oriented x4 , Still having pain, Tolerating Regular Diet, Afebrile, Ambulating with Physical Therapist (limited secondary to pain), Shortness of breath. Denies: Nausea, Vomiting - Objective / Physical Exam Vital Signs: Temperature: 99 F (12/04/16 04:19) HR: 88 (12/04/16 04:19)RR: 16 (12/04/16 04:19 ) BP: 115/71 (12/04/16 04:19)Pulse Ox: 91 (12/04/16 04:19) General: Alert, Oriented x3, Cooperative, No acute distress, Well appearing Musculoskeletal / Extremities: 2 plus Dorsalis Pedis Pulse, Tenderness ( Tenderness to left groin. no calf tenderness) Neurological: Positive Sensation First Dorsal Web Space, Sensation to light touch intact, Extensor Hallicus Longus Intact, Flexor Hallicus Longus Intact, Dorsiflexion Intact, Plantarflexion Intact Laboratory/Diagnostics Reviewed: 12/04/16 05:25 12/04/16 05:25 - Assessment and Plan (1) Stress fracture of neck of left femur Acute M84.352A - STRESS FRACTURE, LEFT FEMUR, INITIAL ENCOUNTER FOR FRACTURE Present on Admission: Yes Plan: Recommend continued non-operative treatment PT/TTWB LLE Continue pain management Mechanical DVT prophylaxis, consider chemical DVT prophylaxis, however patient is now ambulating with PT discharge plan for SNF/rehab. Will follow-up as an outpatient.
[2016-12-04] MEDS: NS/KCl 20 mEq 1,000 ML IV SCH ×2 (13:05→13:19)
[2016-12-04] MEDS: MAGNESIUM HYDROXIDE 30 ML BOTTLE PO PRN (13:05)
--- NOTE | 2016-12-04 13:09 | GENMEDPROG ---
Subjective Note: 51-year-old female admitted to our facility with a stress fracture of her hip joint. She is unable to ambulate well without assistance. She is having significant discomfort requiring pain medications. Awaiting detention placement. Notes Reviewed: Yes Events from last night noted and discussed with Clinical Staff Current Medication List: Reviewed Currently: Reports: Tobacco Use/Hx, Other (hip pain) DVT Prophylaxis: Yes - Physical Examination Vital Signs and I&O: Last Vital Signs Temp 99 F 12/04/16 04:19 Pulse 88 12/04/16 04:19 Resp 16 12/04/16 04:19 BP 115/71 12/04/16 04:19 Pulse Ox 91 12/04/16 04:19 Oxygen Pulse Oxygen Saturation 91 O2 Device Room Air Oxygen Flow Rate Fraction of Inspired Oxygen ( FIO2) Intake & Output 12/01/16 12/02/16 12/03/16 12/04/16 23:59 23:59 23:59 23:59 Intake Total 1089 1128 Output Total 400 Balance 1089 728 Patient's weight 75.296 kg 78.953 kg 78.925 kg General: Alert, Oriented x3, Cooperative, No acute distress, Well appearing Neck: Non-tender, Full range of motion, Normal Trachea alignment, Normal inspection (No cervical lymphadenopathy. No supraclavicular lymphadenopathy.), No Masses palpable, Supple Lymphatics: Normal (No lymph node swelling or pain.) Respiratory: Normal - CTA (Clear to auscultation bilaterally. No wheezing, rales , rhonchi. Chest wall movements are symmetric. No use of accessory muscles to breathe.) Cardiovascular: Regular rate and rhythm (No bradycardia or tachycardia), Normal S1, No Gallops,Rubs/Murmurs, Normal S2, Good Pedal Pulses (DP pulses 2+ bilaterally) GI: Normal bowel sounds (normal active sounds), Soft (non-distended), Non tender , No hepatospenomegaly, No masses Extremities/Musculoskeletal: Normal pulses (DP pulses 2+ bilaterally) Skin: Warm,Dry and Intact, No rashes, No significant lesion Neurological: Strength at 5/5 X4 ext (Motor 5/5 throughout.), Normal tone, Cranial nerves 3-12 NL ( 2-12 grossly intact.) Psych/Mental Status: Appropriate, Normal Affect Lab/DI/Studies Reviewed: Laboratory Results - last 24 hr 12/03/16 12/03/16 12/04/16 16:48 21:32 04:24 WBC RBC Hgb Hct MCV MCH MCHC RDW Plt Count MPV Neut % (Auto) Lymph % (Auto) Garrett % (Auto) Eos % (Auto) Baso % (Auto) Absolute Neuts (auto) Absolute Lymphs (auto) Seg Neuts % (Manual) Band Neutrophils % Lymphocytes % (Manual) Monocytes % (Manual) Eosinophils % (Manual) Metamyelocytes % Myelocytes % Absolute Neutrophils Absolute Lymphocytes Atypical Lymphocytes Platelet Estimate RBC Morphology Sodium Potassium Chloride Carbon Dioxide Anion Gap BUN Creatinine Estimated GFR (MDRD) Glucose POC Capillary Glucose 111 H 101 H 115 H Calculated Osmolality Calcium Magnesium 12/04/16 12/04/16 05:25 05:25 WBC 8.1 RBC 3.56 L Hgb 12.2 D Hct 36.3 MCV 102 H MCH 34.2 H MCHC 33.5 RDW 15.3 H Plt Count 172 MPV 8.2 Neut % (Auto) Cancelled Lymph % (Auto) Cancelled Garrett % (Auto) Cancelled Eos % (Auto) Cancelled Baso % (Auto) Cancelled Absolute Neuts (auto) Cancelled Absolute Lymphs (auto) Cancelled Seg Neuts % (Manual) 58 Band Neutrophils % 10 H Lymphocytes % (Manual) 22 Monocytes % (Manual) 6 Eosinophils % (Manual) 2 Metamyelocytes % 1 H Myelocytes % 1 H Absolute Neutrophils 5.51 Absolute Lymphocytes 1.78 Atypical Lymphocytes Occ Platelet Estimate Norm RBC Morphology 1+ aniso Sodium 140 Potassium 4.2 Chloride 104 Carbon Dioxide 28 Anion Gap 12 BUN 13 Creatinine 0.60 Estimated GFR (MDRD) > 60 Glucose 120 H POC Capillary Glucose Calculated Osmolality 270 Calcium 9.1 Magnesium 2.10 - Assessment (1) Stress fracture of neck of left femur Acute M84.352A - STRESS FRACTURE, LEFT FEMUR, INITIAL ENCOUNTER FOR FRACTURE Comment/Plan: Stress fracture of the left femoral neck diagnosed 11/26/2016 non operative. Working with physical therapy on ambulation. Continue present plan await placement (2) Obesity (BMI 35.0-39.9 without comorbidity) Chronic E66.9 - OBESITY, UNSPECIFIED Comment/Plan: Weight loss is imperative with her diabetes hip pain and peripheral edema. (3) Chronic head pain Acute R51 - HEADACHE; G89.29 - OTHER CHRONIC PAIN Comment/Plan: States the Neurontin helps and if she misses it for more than an hour the pain returned full force in the right side of her head. So we will give her the Neurontin. 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 (4) Rhinitis Chronic J31.0 - CHRONIC RHINITIS Qualifiers: Rhinitis type: allergic Allergic rhinitis trigger: A Allergic rhinitis seasonality: unspecified seasonality Comment/Plan: Flonase ordered. (5) Peripheral edema Chronic R60.9 - EDEMA, UNSPECIFIED Comment/Plan: I do not appreciate any significant amount of edema on examination today. Will continue to monitor and continue fluid restriction. (6) Tobacco abuse Acute Z72.0 - TOBACCO USE Comment/Plan: Spent 10 minutes talking with her about smoking cessation his interested in Chantix as well as nicotine patch. (7) Diet-controlled diabetes mellitus Chronic E11.9 - TYPE 2 DIABETES MELLITUS WITHOUT COMPLICATIONS Comment/Plan : 1800 calorie ADA diet. Sliding scale insulin therapy. - Plan Await placement at skilled facility. Orthopedics help appreciated. Disposition Plan: Skilled facility Case Care Discussed with: Patient, Family Education/Counseling Given To: Patient, Family Member Education/Counseling Given Regarding: Diagnosis, Treatment, Prognosis, Follow Up , Disposition Plan Total Time: 45 minutes Critical Care: No Couseling Time (>50% in counseling/coordination): No
[2016-12-04] MEDS: HYDROCODONE 5 MG/ACETAMIN 325 MG TAB PO PRN (21:21)
[2016-12-04] MEDS: TRAZODONE 100 MG TAB PO SCH (21:23)
[2016-12-04 22:46] LABS: LEUKOCYTES/URINE TRACE (NEGATIVE); URINE OCCULT BLOOD NEG (NEG/TRACE)
[2016-12-04 22:48] LABS: NITRITE/URINE POS (NEGATIVE)
[2016-12-05] MEDS: CEFTRIAXONE 1 GM in D5W 100 ML IV SCH (01:50)
[2016-12-05] MEDS: NICOTINE 21 MG PATCH TOP SCH (01:54)
[2016-12-05] MEDS: OXYCODONE HCL 5 MG TABLET PO PRN ×4 (02:09→20:53)
[2016-12-05 02:41] LABS: AUTOMATED BASOPHIL 0.6 % (0-2); AUTOMATED EOSINOPHIL 2.2 % (0-5); AUTOMATED LYMPH 19.5 % (17-44); AUTOMATED MONOCYTE 6.5 % (3-10); AUTOMATED NEUTROPHIL 71.2 % (45-76); MPV 8.2 fL (7.4-10.4)
[2016-12-05 02:46] LABS: BLOOD UREA NITROGEN 11 MG/DL (7-17); CALCIUM 9.3 MG/DL (8.4-10.2); CALCULATED OSMOLALITY 269 MOs/Kg (270-290); CHLORIDE 103 mEq/L (98-107); GLUCOSE 130 MG/DL (70-99); SODIUM LEVEL 139 mEq/L (137-146)
[2016-12-05] MEDS: HYDROCODONE 5 MG/ACETAMIN 325 MG TAB PO PRN (05:45)
[2016-12-05] MEDS: BUSPIRONE 10 MG TAB PO SCH ×3 (05:46→20:54)
[2016-12-05] MEDS: REGULAR INSULIN 100 UNITS/ML - 3 ML VIAL SQ SCH ×2 (05:47→16:32)
--- NOTE | 2016-12-05 07:39 | PCM.ORTHBL ---
- Subjective Daily Assessment - Patient: Reports: No new complaints, Awake Alert Oriented x4 , Still having pain, Tolerating Regular Diet, Afebrile, Ambulating with Physical Therapist, Shortness of breath (without change), Other (Continues to have spasms in left thigh). Denies: Difficulty Swallowing, Nausea, Vomiting - Objective / Physical Exam Vital Signs: Temperature: 98.9 F (12/05/16 05:47) HR: 93 (12/05/16 05:47)RR: 18 (12/05/16 05: 47) BP: 143/70 (12/05/16 05:47)Pulse Ox: 93 (12/05/16 05:47) General: Alert, Oriented x3, Cooperative, No acute distress, Well appearing Musculoskeletal / Extremities: 2 plus Dorsalis Pedis Pulse, Tenderness (To left hip. no calf tenderness.) Neurological: Positive Sensation First Dorsal Web Space, Sensation to light touch intact, Extensor Hallicus Longus Intact, Flexor Hallicus Longus Intact, Dorsiflexion Intact, Plantarflexion Intact Laboratory/Diagnostics Reviewed: 12/05/16 01:55 12/05/16 01:55 - Assessment and Plan (1) Stress fracture of neck of left femur Acute M84.352A - STRESS FRACTURE, LEFT FEMUR, INITIAL ENCOUNTER FOR FRACTURE Present on Admission: Yes Plan: Non-operative treatment has been recommended. PT/TTWB LLE Continue pain management Continue mechanical DVT prophylaxis Awaiting placement to SNF
[2016-12-05] MEDS: ESTRADIOL 1 MG TAB PO SCH (08:32)
[2016-12-05] MEDS: GABAPENTIN 800 MG TAB PO SCH ×4 (08:32→20:54)
[2016-12-05] MEDS: HYDROCHLOROTHIAZIDE 12.5 MG CAP PO SCH (08:32)
[2016-12-05] MEDS: MELOXICAM 7.5 MG TAB PO SCH ×2 (08:32→20:54)
[2016-12-05] MEDS: ENOXAPARIN 40 MG/0.4 ML PFS SQ SCH (08:33)
[2016-12-05] MEDS: NS/KCl 20 mEq 1,000 ML IV SCH ×2 (08:34→14:13)
[2016-12-05] MEDS: ALPRAZOLAM 0.25 MG TAB PO PRN (09:11)
--- NOTE | 2016-12-05 11:42 | GENMEDPROG ---
Subjective Note: Patient became very anxious today. She required some Xanax. Notes Reviewed: Yes Events from last night noted and discussed with Clinical Staff Current Medication List: Reviewed Currently: Reports: Tobacco Use/Hx, Other (hip pain) DVT Prophylaxis: Yes - Physical Examination Vital Signs and I&O: Last Vital Signs Temp 98.9 F 12/05/16 05:47 Pulse 93 12/05/16 05:47 Resp 18 12/05/16 05:47 BP 143/70 12/05/16 05:47 Pulse Ox 93 12/05/16 05:47 Oxygen Pulse Oxygen Saturation 93 O2 Device Room Air Oxygen Flow Rate Fraction of Inspired Oxygen ( FIO2) Intake & Output 12/02/16 12/03/16 12/04/16 12/05/16 23:59 23:59 23:59 23:59 Intake Total 1089 1488 1455 Output Total 550 1 Balance 3816 798 6414 Patient's weight 75.296 kg 78.953 kg 78.925 kg 78.131 kg General: Alert, Oriented x3, Cooperative, No acute distress, Well appearing HEENT: Normal (Normocephalic, atraumatic;EOMI.Sclera white, Nares patent, without discharge or bleeding. No oropharyngeal lesions or erythema. Mucous membranes are dry.) Respiratory: Normal - CTA (Clear to auscultation bilaterally. No wheezing, rales , rhonchi. Chest wall movements are symmetric. No use of accessory muscles to breathe.) Cardiovascular: Regular rate and rhythm (No bradycardia or tachycardia), Normal S1, No Gallops,Rubs/Murmurs, Normal S2, Good Pedal Pulses (DP pulses 2+ bilaterally) GI: Normal bowel sounds (normal active sounds), Soft (non-distended), Non tender , No hepatospenomegaly, No masses Skin: Warm,Dry and Intact, No rashes, No significant lesion Lab/DI/Studies Reviewed: Abnormal Lab Results 12/04/16 12/04/16 12/05/16 17:58 18:00 01:55 RBC 3.54 L Hct 35.9 L MCV 101 H MCH 34.2 H RDW 14.9 H Glucose POC Capillary Glucose 140 H Calculated Osmolality Urine Nitrite Pos H Ur Leukocyte Esterase Trace H Urine WBC 10-20 H Urine Bacteria 3+ H 01/29/17 01/29/17 01:55 05:08 RBC Hct MCV MCH RDW Glucose 130 H POC Capillary Glucose 115 H Calculated Osmolality 269 L Urine Nitrite Ur Leukocyte Esterase Urine WBC Urine Bacteria - Assessment (1) Stress fracture of neck of left femur Acute M84.352A - STRESS FRACTURE, LEFT FEMUR, INITIAL ENCOUNTER FOR FRACTURE Comment/Plan: Stress fracture of the left femoral neck diagnosed 11/26/2016 non operative. Working with physical therapy on ambulation. Continue present plan await placement (2) Obesity (BMI 35.0-39.9 without comorbidity) Chronic E66.9 - OBESITY, UNSPECIFIED Comment/Plan: Weight loss is imperative with her diabetes hip pain and peripheral edema. (3) Chronic head pain Acute R51 - HEADACHE; G89.29 - OTHER CHRONIC PAIN Comment/Plan: States the Neurontin helps and if she misses it for more than an hour the pain returned full force in the right side of her head. So we will give her the Neurontin. 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 (4) Rhinitis Chronic J31.0 - CHRONIC RHINITIS Qualifiers: Rhinitis type: allergic Allergic rhinitis trigger: A Allergic rhinitis seasonality: unspecified seasonality Comment/Plan: Flonase ordered. (5) Peripheral edema Chronic R60.9 - EDEMA, UNSPECIFIED Comment/Plan: I do not appreciate any significant amount of edema on examination today. Will continue to monitor and continue fluid restriction. (6) Tobacco abuse Acute Z72.0 - TOBACCO USE Comment/Plan: Spent 10 minutes talking with her about smoking cessation his interested in Chantix as well as nicotine patch. (7) Diet-controlled diabetes mellitus Chronic E11.9 - TYPE 2 DIABETES MELLITUS WITHOUT COMPLICATIONS Comment/Plan : 1800 calorie ADA diet. Sliding scale insulin therapy. - Plan Await placement at skilled facility. Orthopedics help appreciated. Disposition Plan: Skilled facility Case Care Discussed with: Patient Education/Counseling Given To: Patient, Family Member Education/Counseling Given Regarding: Diagnosis, Treatment, Prognosis, Disposition Plan Total Time: 45 minutes. Critical Care: No Couseling Time (>50% in counseling/coordination): No
[2016-12-05] MEDS: DIAZEPAM 5 MG TAB PO PRN (16:19)
[2016-12-05] MEDS: TRAZODONE 100 MG TAB PO SCH (20:54)
[2016-12-06] MEDS: HYDROCODONE 5 MG/ACETAMIN 325 MG TAB PO PRN ×2 (01:12→08:50)
[2016-12-06] MEDS: CEFTRIAXONE 1 GM in D5W 100 ML IV SCH (01:13)
[2016-12-06] MEDS: NICOTINE 21 MG PATCH TOP SCH (01:21)
[2016-12-06 04:15] VITALS: TEMP 98.2
[2016-12-06 04:17] VITALS: BMI 34.5
[2016-12-06] MEDS: BUSPIRONE 10 MG TAB PO SCH ×2 (05:12→13:34)
[2016-12-06] MEDS: OXYCODONE HCL 5 MG TABLET PO PRN ×2 (05:12→12:24)
--- NOTE | 2016-12-06 06:35 | PCM.ORTHBL ---
- Subjective Daily Assessment - Patient: Reports: No new complaints, Awake Alert Oriented x4 , Feels better (spasms have improved), Still having pain, Pain is less, Tolerating Regular Diet, Afebrile, Shortness of breath (improved today). Denies : Nausea, Vomiting - Objective / Physical Exam Vital Signs: Temperature: 98.2 F (12/06/16 04:14) HR: 88 (12/06/16 04:14)RR: 18 (12/06/16 04: 14) BP: 142/85 (12/06/16 04:14)Pulse Ox: 95 (12/06/16 04:14) General: Alert, Oriented x3, Cooperative, No acute distress, Well appearing Musculoskeletal / Extremities: 2 plus Dorsalis Pedis Pulse. negative: Tenderness (to left hip. No calf tenderness) Neurological: Positive Sensation First Dorsal Web Space, Sensation to light touch intact, Extensor Hallicus Longus Intact, Flexor Hallicus Longus Intact, Dorsiflexion Intact, Plantarflexion Intact - Assessment and Plan (1) Stress fracture of neck of left femur Acute M84.352A - STRESS FRACTURE, LEFT FEMUR, INITIAL ENCOUNTER FOR FRACTURE Present on Admission: Yes Plan: Continue non-operative treatment PT/TTWB LLE Continue pain management D/c plan for SNF/rehab
[2016-12-06] MEDS: REGULAR INSULIN 100 UNITS/ML - 3 ML VIAL SQ SCH (06:39)
[2016-12-06] MEDS: NS/KCl 20 mEq 1,000 ML IV SCH ×2 (06:39→11:16)
[2016-12-06 07:12] LABS: AUTOMATED BASOPHIL 0.4 % (0-2); AUTOMATED EOSINOPHIL 2.4 % (0-5); AUTOMATED LYMPH 20.2 % (17-44); AUTOMATED MONOCYTE 6.9 % (3-10); AUTOMATED NEUTROPHIL 70.1 % (45-76); MPV 7.8 fL (7.4-10.4)
[2016-12-06 07:35] LABS: BLOOD UREA NITROGEN 12 MG/DL (7-17); CALCIUM 9.2 MG/DL (8.4-10.2); CALCULATED OSMOLALITY 264 MOs/Kg (270-290); CHLORIDE 101 mEq/L (98-107); GLUCOSE 105 MG/DL (70-99); SODIUM LEVEL 137 mEq/L (137-146)
[2016-12-06] MEDS: ALPRAZOLAM 0.25 MG TAB PO PRN (08:50)
[2016-12-06] MEDS: MELOXICAM 7.5 MG TAB PO SCH (08:51)
[2016-12-06] MEDS: GABAPENTIN 800 MG TAB PO SCH ×3 (08:51→16:30)
[2016-12-06] MEDS: ESTRADIOL 1 MG TAB PO SCH (08:51)
[2016-12-06] MEDS: HYDROCHLOROTHIAZIDE 12.5 MG CAP PO SCH (08:51)
[2016-12-06] MEDS: ENOXAPARIN 40 MG/0.4 ML PFS SQ SCH (08:51)
[2016-12-06] MEDS: MORPHINE 2 MG/ML INJECTION IV PRN ×2 (10:18→13:33)
[2016-12-06] MEDS: DIAZEPAM 5 MG TAB PO PRN (10:18)
--- NOTE | 2016-12-06 11:28 | GENMEDPROG ---
Subjective Note: Patient very anxious and in a lot of pain today states pain medicine did not help her pain and that Xanax did not help her anxiety. Notes Reviewed: Yes Events from last night noted and discussed with Clinical Staff Current Medication List: Reviewed Currently: Reports: Tobacco Use/Hx, Other (hip pain) DVT Prophylaxis: Yes - Physical Examination Vital Signs and I&O: Last Vital Signs Temp 98.2 F 12/06/16 04:14 Pulse 88 12/06/16 04:14 Resp 18 12/06/16 04:14 BP 142/85 12/06/16 04:14 Pulse Ox 95 12/06/16 04:14 Oxygen Pulse Oxygen Saturation 95 O2 Device Room Air Oxygen Flow Rate Fraction of Inspired Oxygen ( FIO2) Intake & Output 12/03/16 12/04/16 12/05/16 12/06/16 23:59 23:59 23:59 23:59 Intake Total 1089 1488 2265 1112 Output Total 550 3 2000 Balance 6915 500 4629 -888 Patient's weight 78.953 kg 78.925 kg 78.131 kg 77.649 kg General: Alert, Oriented x3, Cooperative, No acute distress, Well appearing HEENT: Normal (Normocephalic, atraumatic;EOMI.Sclera white, Nares patent, without discharge or bleeding. No oropharyngeal lesions or erythema. Mucous membranes are dry.) Neck: Non-tender, Full range of motion, Normal Trachea alignment, Normal inspection (No cervical lymphadenopathy. No supraclavicular lymphadenopathy.), No Masses palpable, Supple Lymphatics: Normal (No lymph node swelling or pain.) Respiratory: Normal - CTA (Clear to auscultation bilaterally. No wheezing, rales , rhonchi. Chest wall movements are symmetric. No use of accessory muscles to breathe.) Cardiovascular: Regular rate and rhythm (No bradycardia or tachycardia), Normal S1, No Gallops,Rubs/Murmurs, Normal S2, Good Pedal Pulses (DP pulses 2+ bilaterally) GI: Normal bowel sounds (normal active sounds), Soft (non-distended), Non tender , No hepatospenomegaly, No masses Extremities/Musculoskeletal: Normal pulses (DP pulses 2+ bilaterally) Skin: Warm,Dry and Intact, No rashes, No significant lesion Psych/Mental Status: Agitated, Anxious Lab/DI/Studies Reviewed: Abnormal Lab Results 12/06/16 12/06/16 12/06/16 05:50 06:29 06:29 RBC 3.58 L MCV 101 H MCH 34.2 H RDW 14.7 H Creatinine 0.50 L Glucose 105 H POC Capillary Glucose 116 H Calculated Osmolality 264 L - Assessment (1) Stress fracture of neck of left femur Acute M84.352A - STRESS FRACTURE, LEFT FEMUR, INITIAL ENCOUNTER FOR FRACTURE Comment/Plan: Stress fracture of the left femoral neck diagnosed 11/26/2016 non operative. Working with physical therapy on ambulation. Continue present plan await placement (2) Obesity (BMI 35.0-39.9 without comorbidity) Chronic E66.9 - OBESITY, UNSPECIFIED Comment/Plan: Weight loss is imperative with her diabetes hip pain and peripheral edema. (3) Chronic head pain Acute R51 - HEADACHE; G89.29 - OTHER CHRONIC PAIN Comment/Plan: States the Neurontin helps and if she misses it for more than an hour the pain returned full force in the right side of her head. So we will give her the Neurontin. 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 (4) Rhinitis Chronic J31.0 - CHRONIC RHINITIS Qualifiers: Rhinitis type: allergic Allergic rhinitis trigger: A Allergic rhinitis seasonality: unspecified seasonality Comment/Plan: Flonase ordered. (5) Peripheral edema Chronic R60.9 - EDEMA, UNSPECIFIED Comment/Plan: I do not appreciate any significant amount of edema on examination today. Will continue to monitor and continue fluid restriction. (6) Tobacco abuse Acute Z72.0 - TOBACCO USE Comment/Plan: Spent 10 minutes talking with her about smoking cessation his interested in Chantix as well as nicotine patch. (7) Diet-controlled diabetes mellitus Chronic E11.9 - TYPE 2 DIABETES MELLITUS WITHOUT COMPLICATIONS Comment/Plan : 1800 calorie ADA diet. Sliding scale insulin therapy. - Plan Await placement at skilled facility. Orthopedics help appreciated. Disposition Plan: Skilled facility Case Care Discussed with: Patient, Nursing Staff Education/Counseling Given To: Patient Education/Counseling Given Regarding: Diagnosis, Treatment, Prognosis, Disposition Plan Total Time: 45 minutes Critical Care: No Couseling Time (>50% in counseling/coordination): No
--- NOTE | 2016-12-06 13:10 | PCM.DCS92 ---
- Final/Secondary Discharge Diagnosis (1) Stress fracture of neck of left femur Acute M84.352A - STRESS FRACTURE, LEFT FEMUR, INITIAL ENCOUNTER FOR FRACTURE Present on Admission: Yes Comment: Stress fracture of the left femoral neck diagnosed 11/26/2016 non operative. Working with physical therapy on ambulation. Continue present plan await placement (2) Obesity (BMI 35.0-39.9 without comorbidity) Chronic E66.9 - OBESITY, UNSPECIFIED Present on Admission: Yes Comment: Weight loss is imperative with her diabetes hip pain and peripheral edema. (3) Chronic head pain Acute R51 - HEADACHE; G89.29 - OTHER CHRONIC PAIN Present on Admission: Yes Comment: States the Neurontin helps and if she misses it for more than an hour the pain returned full force in the right side of her head. So we will give her the Neurontin. 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 (4) Rhinitis Chronic J31.0 - CHRONIC RHINITIS Present on Admission: Yes allergic A unspecified seasonality Comment: Flonase ordered. (5) Peripheral edema Chronic R60.9 - EDEMA, UNSPECIFIED Present on Admission: Yes Comment: I do not appreciate any significant amount of edema on examination today. Will continue to monitor and continue fluid restriction. (6) Tobacco abuse Acute Z72.0 - TOBACCO USE Comment: Spent 10 minutes talking with her about smoking cessation his interested in Chantix as well as nicotine patch. (7) Diet-controlled diabetes mellitus Chronic E11.9 - TYPE 2 DIABETES MELLITUS WITHOUT COMPLICATIONS Present on Admission: Yes Comment: 1800 calorie ADA diet. Sliding scale insulin therapy. Discharge Disposition: Senior Care Facility Discharge Condition: Improved Cognitive Discharge Status: Unimpaired Fuctional Discharge Status: Bed Bound, Deconditioning, Ambulatory Dysfunction Physician Follow up/Referrals: Paulina Trevino PA [Primary Care Provider] - Listed Time Home Medications / New Prescriptions: New Varenicline [Chantix] 0.5 mg PO BID #60 tablet Nicotine [Nicoderm] 21 mg TOP Q24H #30 pat Diazepam [Valium] 5 mg PO Q6H PRN #60 tablet PRN Reason: Muscle Spasms Continue Buspirone HCl [Buspar] 10 mg PO TID Gabapentin 800 mg PO QID Fluticasone Propionate [Flonase] 2 spray JEWELS DAILY Trazodone HCl 300 mg PO HS Meloxicam [Mobic] 7.5 mg PO BID Hydrochlorothiazide [Hydrodiuril] 12.5 mg PO QAM Estradiol [Estrace] 1 mg PO DAILY Cyclobenzaprine HCl [Flexeril] 10 mg PO Q8H #10 tab Hydrocodone Bit/Acetaminophen [Hydrocodon-Acetaminophen 5-325] 1 tab PO Q6H PRN #10 tab PRN Reason: Pain Oxycodone Immediate Release [Oxycodone Immediate Release (OxyIR)] 5 mg PO Q4H PRN #40 tab PRN Reason: Pain Oxycodone HCl/Acetaminophen [Percocet 10-325 mg Tablet] 1 - 2 tab PO Q6H PRN #30 tab PRN Reason: Pain Discharge Home Medication List Buspirone HCl [Buspar] 10 mg PO TID 09/20/12 [History Confirmed 12/02/16] Gabapentin 800 mg PO QID 09/20/12 [History Confirmed 12/02/16] Cyclobenzaprine HCl [Flexeril] 10 mg PO Q8H #10 tab 11/21/16 [Rx Confirmed 12/02] Estradiol [Estrace] 1 mg PO DAILY 11/21/16 [History Confirmed 12/02/16] Fluticasone Propionate [Flonase] 2 spray JEWELS DAILY 11/21/16 [History Confirmed 12/02/16] Hydrochlorothiazide [Hydrodiuril] 12.5 mg PO QAM 11/21/16 [History Confirmed ] Meloxicam [Mobic] 7.5 mg PO BID 11/21/16 [History Confirmed 12/02/16] Trazodone HCl 300 mg PO HS 11/21/16 [History Confirmed 12/02/16] Diazepam [Valium] 5 mg PO Q6H PRN #60 tablet 12/06/16 [Rx] Hydrocodone Bit/Acetaminophen [Hydrocodon-Acetaminophen 5-325] 1 tab PO Q6H PRN #10 tab 12/06/16 [Rx] Nicotine [Nicoderm] 21 mg TOP Q24H #30 pat 12/06/16 [Rx] Oxycodone HCl/Acetaminophen [Percocet 10-325 mg Tablet] 1 - 2 tab PO Q6H PRN # 30 tab 12/06/16 [Rx] Oxycodone Immediate Release [Oxycodone Immediate Release (OxyIR)] 5 mg PO Q4H PRN #40 tab 12/06/16 [Rx] Varenicline [Chantix] 0.5 mg PO BID #60 tablet 12/06/16 [Rx] New Discharge Medications (Rx) Diazepam [Valium] 5 mg PO Q6H PRN #60 tablet 12/06/16 [Rx] Hydrocodone Bit/Acetaminophen [Hydrocodon-Acetaminophen 5-325] 1 tab PO Q6H PRN #10 tab 12/06/16 [Rx] Nicotine [Nicoderm] 21 mg TOP Q24H #30 pat 12/06/16 [Rx] Oxycodone HCl/Acetaminophen [Percocet 10-325 mg Tablet] 1 - 2 tab PO Q6H PRN # 30 tab 12/06/16 [Rx] Oxycodone Immediate Release [Oxycodone Immediate Release (OxyIR)] 5 mg PO Q4H PRN #40 tab 12/06/16 [Rx] Varenicline [Chantix] 0.5 mg PO BID #60 tablet 12/06/16 [Rx] O2 Device: Room Air Diet at Discharge: As Tolerated Activity: No Restrictions Call Office For: Worsening Symptoms, Fever over 100.5, Pain Uncontrolled By Meds Discontinue use of:: All Types of Tobacco - DC Summary Notes Hospital Course Note:: Discharge summary on patient named JOSE SO admitted to [facility] on 12/02/16 by Evin Zendejas MD. Date of discharge is []. Unfortunate 51-year-old female who suffered a stress fracture of the neck of the femur. She is unable to walk on this leg. She was observed in the hospital while placement was obtained. She was seen by Orthopedic surgery who recommended weight-bearing as tolerated. At this point patient has reached maximal benefit of hospitalization. She has been accepted for transfer to the nursing facility. She did have some episodes of anxiety requiring use of benzodiazepines. At this point she has reached maximum benefit of hospitalization she is stable for transfer to nursing facility Total Time: 45 min Code: 80001 (>30min.) - Physical Exam Vital Signs: Last Vital Signs Temp 98.2 F 12/06/16 04:14 Pulse 88 12/06/16 04:14 Resp 18 12/06/16 04:14 BP 142/85 12/06/16 04:14 Pulse Ox 95 12/06/16 04:14 Oxygen Pulse Oxygen Saturation 95 O2 Device Room Air Oxygen Flow Rate Fraction of Inspired Oxygen ( FIO2) Constitutional: No apparent distress, Alert Oriented to: Time, Person, Place - HEENT Head: Normal - Respiratory/Cardiovascular Respiratory: Normal - CTA (Clear to auscultation bilaterally. No wheezing, rales , rhonchi. Chest wall movements are symmetric. No use of accessory muscles to breathe.) - GI Auscultation: Normal (normal active sounds) Palpation: Normal (Soft,non distended,nontender. No hepatosplenomegaly.) Tenderness: Non tender (No rebound or guarding) Cintron's Sign: Negative - Musculoskeletal Extremities: Other (Examination of the patient's left hip is normal to inspection. She is nontender to palpate laterally over the trochanter. No effusion. She does have reproducible pain within the left groin with any attempts at passive range of motion. She has pain reproducible in the left groin with logroll testing. Left knee is nontender to palpate. No effusion. She has full plantar flexion and dorsiflexion of the left ankle distally. Left lower extremity remains neurovascularly intact without motor deficit.) - Integumentary Lymphatics: Normal (No lymph node swelling or pain.) - Neurologic Memory Impaired: Normal Cerebellar: Normal (Babinski: toes downgoing bilaterally. Intact Finger to nose. Sensory grossly intact to light touch. Intact rapid alternating movements bilaterally. No pronator drift.) Mood Description: Normal (Fully oriented. Normal and appropriate affect.) Perception: Normal (Normal and appropriate affect.) - Other Exam Other Exam Findings: Laboratory Results - last 24 hr 12/05/16 12/06/16 12/06/16 16:14 05:50 06:29 WBC 7.7 RBC 3.58 L Hgb 12.2 Hct 36.0 MCV 101 H MCH 34.2 H MCHC 34.0 RDW 14.7 H Plt Count 196 MPV 7.8 Neut % (Auto) 70.1 Lymph % (Auto) 20.2 [place] % (Auto) 6.9 Eos % (Auto) 2.4 Baso % (Auto) 0.4 Absolute Neuts (auto) 5.39 Absolute Lymphs (auto) 1.54 Sodium Potassium Chloride Carbon Dioxide Anion Gap BUN Creatinine Estimated GFR (MDRD) Glucose POC Capillary Glucose 95 116 H Calculated Osmolality Calcium Magnesium 12/06/16 06:29 WBC RBC Hgb Hct MCV MCH MCHC RDW Plt Count MPV Neut % (Auto) Lymph % (Auto) [place] % (Auto) Eos % (Auto) Baso % (Auto) Absolute Neuts (auto) Absolute Lymphs (auto) Sodium 137 Potassium 4.5 Chloride 101 Carbon Dioxide 28 Anion Gap 13 BUN 12 Creatinine 0.50 L Estimated GFR (MDRD) > 60 Glucose 105 H POC Capillary Glucose Calculated Osmolality 264 L Calcium 9.2 Magnesium 2.10
[2016-12-06 13:48] VITALS: BP 163/79; PULSE 97
== END 2016-12-06 16:22 ==
LOC: ED 20:12 → MPS3 22:35 → INTOOBSV 22:35
PROVIDERS: ADMIT Internal Medicine; ATTEND Hospitalist
DX: M84.352A Stress fracture, left femur, initial encounter for fracture (principal); E66.9 Obesity, unspecified; R51 Headache; J31.0 Chronic rhinitis; R60.9 Edema, unspecified; G89.29 Other chronic pain; E11.9 Type 2 diabetes mellitus without complications; F17.210 Nicotine dependence, cigarettes, uncomplicated; Z68.39 Body mass index [BMI] 39.0-39.9, adult; Z23 Encounter for immunization; E78.1 Pure hyperglyceridemia; K76.0 Fatty (change of) liver, not elsewhere classified; X58.XXXA Exposure to other specified factors, initial encounter; Z71.6 Tobacco abuse counseling
CPT/HCPCS: 36415; 71010; 80048; 80053; 81001; 82306; 82962; 83735; 83880; 85007; 85025; 85027; 87040; 87077; 87086; 87186; 93005; 93970; 96372; 97161; 97530; 99283; 99406; A9270; G0009; G0237; G0378; J0696; J1650; J2270; J7040; J7060; 90471; 90656; 90732; J3490